=== PATIENT | male | born 2000 | race Caucasian/White ===

== ENCOUNTER 2020-12-16 23:49 | Emergency (ER) | payer OTHER ==
[2020-12-17] MEDS ORDERED: Sulfameth/Trimethoprim DS 800-160mg TAB ONE (00:30)
[2020-12-17] MEDS ORDERED: Ibuprofen 800 MG TAB ONE (00:30)
== END 2020-12-17 01:19 ==
LOC: MADERS 23:49
DX: S01.81XA Laceration without foreign body of other part of head, initial encounter (principal); S11.91XA Laceration without foreign body of unspecified part of neck, initial encounter; S30.811A Abrasion of abdominal wall, initial encounter; F17.200 Nicotine dependence, unspecified, uncomplicated; Z79.899 Other long term (current) drug therapy; X99.9XXA Assault by unspecified sharp object, initial encounter
CPT/HCPCS: 99284